=== PATIENT | female | born 1955 | race Caucasian/White ===

== ENCOUNTER 2025-03-20 14:51 | Observation (INO) | payer MEDICARE, SELFPAY ==
[2025-03-20] VITALS (10 sets, daily range): BP systolic 125–169; BP diastolic 68–105; PULSE 70–88; RESP 11–28; TEMP 36.6–36.8; O2SAT 86–98; BMI 30.9
--- NOTE | 2025-03-20 14:55 | ED_ITS ---
<Statement entered by Aden Weston MD - 03/20/25 23:38> I was consulted by the NEAL, and we discussed the complexity of the problems being addressed. I approved the treatment and management plan for this patient's care in the emergency department, thus performing a substantive portion of the medical decision making. Aden Weston MD, BJORN, FACEP Discharge Plan Disposition Patient Disposition: Admitted Condition: Good Clinical Impressions Clinical Impression: Acute diverticulitis, Elevated creatine kinase, Hypokalemia, Hypomagnesemia, Toxic metabolic encephalopathy Discharge ED Provider: Aden Weston General Adult HPI General Chief complaint: Weakness Stated complaint: Weakness Time Seen by Provider: 03/20/25 14:55 History of Present Illness HPI narrative: Patient presents for evaluation of bilateral lower extremity weakness. Patient's last known well was around 630 to 7 PM last night. Patient states that she felt unwell yesterday and noted that she had a temperature of 102. She took a home COVID test that was reportedly positive. She took ibuprofen and felt that she was somewhat better however she did attempt to contact her PCP who was out of the office yesterday. Patient has no recollection of the events after yesterday evening. Patient was found by family members around 930 this morning in the floor. Patient has no recollection of events. Currently she denies chest pain fever chills hemoptysis hematochezia melena nausea vomiting diarrhea. Patient was assisted to a chair been normal. She has no focal neurologic deficits pain or injury. However patient reports that her bilateral anterior upper thighs feel weak. She feels unsteady which is not her normal. Related Data Home Medications ?Medication ?Instructions ?Recorded ?Confirmed diphenhydramine HCl 25 mg capsule 25 mg PO HS PRN Slee p 03/20/25 03/20/25 (Benadryl) ezetimibe 10 mg tablet 10 mg PO DAILY 03/20/2502/20 hydrochlorothiazide 50 mg tablet 50 mg PO DAILY 03/20/25 levothyroxine 50 mcg tablet 50 mcg PO DAILY 03/20/25 0 03/20/25 meclizine 25 mg tablet 25 mg PO TID PRN Dizziness 0 03/20/25 03/20/25 melatonin 10 mg tablet 10 mg PO HS 03/20/25 5 metoprolol succinate 50 mg 50 mg PO DAILY 03/20/25 tablet,extended release 24 hr trazodone 50 mg tablet 50 mg PO HS 03/20/25 5 valsartan 160 mg tablet 160 mg PO DAILY 03/20/25 Allergies Allergy/AdvReac Type Severity Reaction Status Date / Time Sulfa (Sulfonamide Allergy Hives Verified 03/20/25 15:28 Antibiotics) [facility] Disclaimer: The information contained in this section may have been updated after the patient was seen, as this information can be updated by other users. Family History (Updated 03/20/25 @ 19:57 by Aurelio French APRN) Father Cancer Mother Cancer Social History Smoking Status: Never smoker alcohol intake: never current occupational status: retired Travel in the last 8 weeks?: None ROS Obtained: Yes Systems reviewed as appropriate & no additional complaints except as documented Physical Exam General General appearance: alert and in no apparent distress Respiratory Respiratory exam: Present normal lung sounds bilaterally Cardiovascular Cardiovascular exam: Present regular rate and normal rhythm Neurological Exam Neurological exam: Present alert, oriented X3, CN II-XII intact and normal gait; Absent motor sensory deficit Medical Decision Making Medical Records Medical records reviewed: Yes I reviewed the patient's medical records. Screening: Per USPSTF and CDC recommendations, given the prevalence of disease in our region, it is our hospital?s policy to screen for HIV and viral Hepatitis for all patients aged 18 and over and those with ongoing risk factors. Abraham Inquiry Pt receiving controlled substance: No Vital Signs: 03/20/25 14:58 03/20/25 15:00 03/20/25 15:30 Temperature 98.2 F Temperature Source Oral Pulse Rate 83 Pulse Rate [Left Radial] 82 Respiratory Rate 14 17 20 Blood Pressure 146/68 H 139/73 Blood Pressure [Right Arm] 144/72 H Blood Pressure Mean [Right Arm] 96 Blood Pressure Source Blood Pressure Position 02 Sat by Pulse Oximetry 94 L 97 Oxygen Delivery Method Room Air 03/20/25 16:00 03/20/25 17:30 03/20/25 18:00 Temperature Temperature Source Pulse Rate 82 88 85 Pulse Rate [Left Radial] Respiratory Rate 28 H 23 22 Blood Pressure 151/75 H 169/78 H Blood Pressure [Right Arm] Blood Pressure Mean [Right Arm] Blood Pressure Source Blood Pressure Position 02 Sat by Pulse Oximetry 98 97 96 Oxygen Delivery Method Room Air 03/20/25 18:30 03/20/25 19:38 Temperature 97.9 F Temperature Source Oral Pulse Rate 84 86 Pulse Rate [Left Radial] Respiratory Rate 18 16 Blood Pressure 151/69 H 133/74 Blood Pressure [Right Arm] Blood Pressure Mean [Right Arm] Blood Pressure Source Automatic Cuff Blood Pressure Position Supine 02 Sat by Pulse Oximetry 97 Oxygen Delivery Method Room Air Room Air Lab Data Lab results reviewed: Yes I reviewed the patient's lab results. Lab Results 03/20/25 15:10: VBG pH 7.50 H, VBG pCO2 27.0 L, VBG pO2 184.3 H, VBG HCO3 20.3 L , VBG Total CO2 21.2 L, VBG O2 Saturation 99.7 H, VBG Base Excess -2.9 L, VBG Lactic Acid 1.9 03/20/25 15:14: Chlamy pneumoniae PCR Not detected, Adenovirus (PCR) Not detected, B. pertussis DNA (PCR) Not detected, Coronavirus OC43 (PCR) Not detected, Coronavirus HKU1 (PCR) Not detected, Coronavirus 229E (PCR) Not detected, SARS-CoV-2 (PCR) Not detected, Coronavirus NL63 (PCR) Not detected, Human Metapneumovir PCR Not detected, Influenza A (H1) PCR Not detected, Influ A (H1N1/09) PCR Not detected, Influenza A (H3) PCR Not detected, Influenza Type A (PCR) Not detected, Influenza Type B (PCR) Not detected, M. pneumoniae (PCR) Not detected, Parainfluenza 1 (PCR) Not detected, Parainfluenza 2 (PCR) Not detected, Parainfluenza 3 (PCR) Not detected, Parainfluenza 4 (PCR) Not detected, RSV (PCR) Not detected, Entero/Rhino (PCR) Not detected 03/20/25 16:20: WBC 14.7 H, RBC 3.68 L, Hgb 12.1 L, Hct 35.0 L, MCV 95.1, MCH 32.9 H, MCHC 34.6, RDW 14.0, Plt Count 288, MPV 9.9, Neut % (Auto) 89.9 H, Lymph % (Auto) 4.1 L, [place] % (Auto) 5.5, Eos % (Auto) 0.0 L, Baso % (Auto) 0.1, Neut # (Auto) 13.2 H, Lymph # (Auto) 0.6 L, [place] # (Auto) 0.8, Eos # (Auto) 0.0, Baso # (Auto) 0.0, ESR 63 H, PT 11.9, INR 1.08, Sodium 134 L, Potassium 3.0 L, Chloride 99, Carbon Dioxide 27, Anion Gap 11.0, BUN 21 H, Creatinine 1.00, Estimated Creat Clear 67, Estimated GFR 55 L, Est GFR ( Amer) 66, Glucose 105 H, Calcium 9.0, Phosphorus 2.5, Magnesium 1.4 L, Total Bilirubin 0.9, AST 52 H, ALT 23, Alkaline Phosphatase 72, Total Creatine Kinase 1043 H*, Troponin I < 0.01, C -Reactive Protein 141.0 H, NT-Pro-B Natriuret Pep 507 H, Total Protein 7.5, Albumin 4.1, Globulin 3.4 H, Albumin/Globulin Ratio 1.2, Procalcitonin 0.305, TSH 2.41, Free T4 Index 4.2 L, Thyroxine (T4) 10.5, T3 Uptake 40 03/20/25 17:31: Urine Color Yellow, Urine Appearance Clear, Urine pH 6.0, Ur Specific [place] 1.010, Urine Protein Negative, Urine Glucose (UA) Negative, Urine Ketones 1+, Urine Blood Trace-i, Urine Nitrate Negative, Urine Bilirubin Negative, Urine Urobilinogen 0.2, Ur Leukocyte Esterase Negative, Urine RBC Occasional, Urine WBC None, Ur Squamous Epith Cells 3-5, Urine Bacteria Trace, Urine Opiates Screen Negative, Urine Methadone Screen Negative, Ur Barbituates Screen Negative, Ur Phencyclidine Scrn Negative, Ur Amphetamines Screen Negative, U Benzodiazepines Scrn Negative, Urine Cocaine Screen Negative, U Marijuana (THC) Screen Negative 03/20/25 16:20 03/20/25 16:20 Orders (Tests/Meds): ED MEDICATIONS Generic Name Dose Route Start Last Admin Trade Name Freq PRN Reason Stop Dose Admin Acetaminophen 650 mg 03/20/25 18:31 Acetaminophen 325mg Tab PO 04/19/25 18:30 Q4HP PRN Fever or Mild Pain (1-3) Enoxaparin Sodium 40 mg 03/21/25 09:00 Enoxaparin 40mg/0.4ml Syringe SUBCUT 04/20/25 08:59 DAILY RAFAEL Piperacillin Sod/Tazobactam 50 mls @ 100 mls/hr 03/21/25 01:30 Sod 3.375 gm/ Sodium Chloride IV 03/31/25 01:29 Q6H RAFAEL Discontinued Medications Generic Name Dose Route Start Last Admin Trade Name Freq PRN Reason Stop Dose Admin Sodium Chloride 1,000 mls @ 999 mls/hr 03/20/25 15:08 03/20/25 15:24 Sod Chlor 0.9% 1000ml Bag IV 03/20/25 16:08 999 mls/hr .Q1H1M ONE Administration Piperacillin Sod/Tazobactam 50 mls @ 100 mls/hr 03/20/25 18:22 Sod 3.375 gm/ Sodium Chloride IV 03/20/25 18:51 ONCE ONE Iopamidol 160 ml 03/20/25 17:10 03/20/25 17:12 Iopamidol-370 (76%);100ml Bottle IV 03/20/25 17:11 160 ml ONCE ONE Administration Sodium Chloride 10 ml 03/20/25 17:10 03/20/25 17:12 Sodium Chloride 0.9% 10ml Syr (Rad Only) IV 03/20/25 17:11 10 ml ONCE ONE Administration Sodium Chloride 100 ml 03/20/25 17:10 03/20/25 17:12 0.9 % Sodium Chloride 50 Ml Vial IV 03/20/25 17:11 100 ml ONCE ONE Administration ORDERS Category Date Time Status CT angio abd/pel - TRAUMA Stat Cat Scan 03/20/25 15:[address] angio chest - dissection Stat Cat Scan 03/20/25 15:[address] angio head Stat Cat Scan 03/20/25 15:[address] angio neck Stat Cat Scan 03/20/25 15:[address] cervical spine wo con Stat Cat Scan 03/20/25 15:[address] head/brain wo con Stat Cat Scan 03/20/25 15:[address] lumbar spine wo con Stat Cat Scan 03/20/25 15:[address] thoracic spine wo con Stat Cat Scan 03/20/25 15:10 Completed BNP [NT Pro Brain Natriuretic Pep.] Stat Lab 03/20/25 16:20 Completed CBC w/Auto Diff [Complete Blood Count Auto Diff] Stat Lab 03/20/25 16:20 Completed CK [Creatine Kinase] AMLAB Lab 03/21/25 06:00 Ordered CK [Creatine Kinase] Stat Lab 03/20/25 16:20 Completed CMP [Comprehensive Metabolic Panel] Stat Lab 03/20/25 16:20 Completed CRP [C-Reactive Protein] Stat Lab 03/20/25 16:20 Completed Complete Blood Count Auto Diff AMLAB Lab 03/21/25 06:00 Ordered Comprehensive Metabolic Panel AMLAB Lab 03/21/25 06:00 Ordered ESR [Erythrocyte Sedimentation Rate] Stat Lab 03/20/25 16:20 Completed Full Resp Panel w/COVID ([facility]) Routine Lab 03/20/25 15:14 Completed INR [Prothrombin Time INR] Stat Lab 03/20/25 16:20 Completed Magnesium AMLAB Lab 03/21/25 06:00 Ordered Magnesium Stat Lab 03/20/25 16:20 Completed Phosphorous AMLAB Lab 03/21/25 06:00 Ordered Phosphorous Stat Lab 03/20/25 16:20 Completed Procalcitonin Stat Lab 03/20/25 16:20 Completed Thyroid Panel Stat Lab 03/20/25 16:20 Completed Trop I [Troponin I] Stat Lab 03/20/25 16:20 Completed Troponin I Q3H Lab 03/20/25 21:15 Ordered UA [Urinalysis and Microscopic] Stat Lab 03/20/25 17:31 Completed UDS [Drug Screen,Urine] Stat Lab 03/20/25 17:31 Completed Blood Culture Stat Micro 03/20/25 18:48 Received VBG [Venous Blood Gas] Stat RT 03/20/25 15:10 Completed Medical Decision Narrative: In summary patient is a 69-year-old female who presents to the emergency department for evaluation of a fall and amnesia of the events, fever and a positive home COVID test. Patient is is initially hemodynamically stable with a blood pressure 144/72 heart rate 82 with normal sinus rhythm on the bedside monitor breathing 14 times a minute satting at 94% on room air upon arrival, afebrile at 98.2. Physical exam is remarkable for a well-nourished well- developed 69-year-old female who otherwise is in no acute distress. Breath sounds clear and equal bilaterally to the bases without adventitious sounds or increased work of breathing. Abdomen soft nontender no rebound or guarding or rigidity. Bowel sounds normal active. Heart sounds are S1-S2 regular rate rhythm without murmurs gallops rubs or thrills or dependent edema. Cranial nerves II through XII are intact grossly to exam patient is currently awake alert and oriented person place and circumstance with a [place] Coma Score 15. Patient moves all 4 extremities with no focal neurologic deficits. Secondary survey reveals no trauma bony deformity pain contusions abrasions tenderness instability or crepitus.. Differential diagnosis includes stroke versus syncope versus ACS versus PE versus UTI versus hypoxia etc. Initial workup will be conducted with hematologic labs ED trauma scans urinalysis. Initial interventions include crystalloid bolus for now as patient has no other complaints of pain or nausea. Initial workup reviewed by me shows patient white count is 14.7 hemoglobin and hematocrit of 12.1 and 35.0 respectively with an absolute neutrophil count of 13.2, ESR is 63 INR is 1.08 VBG shows a pH of 7.5 pCO2 of 27P O2 of 184.3 bicarb of 20.3 O2 sat of 99.7% base excess of -2.9 and VBG lactic acid of 1.9, sodium is at 134 potassium is 3 BUN is 21 creatinine 1 GFR is 55 glucose is 105 magnesium is 1.4 AST is 52 CK is 1043 troponin is undetectable at 0.01 CRP is elevated at 141 NT proBNP is 507 procalcitonin is 0.305 TSH is 2.41 urinalysis is bland urine drug screen is negative full respiratory panel does not detect COVID nor any other organisms. My informed interpretation of her imaging shows no evidence of acute bony injury intracranial injury or large vessel occlusion. There is questionable stranding around the descending colon that could be diverticulitis. Please see final radiology read for formal interpretation.. Upon repeat evaluation patient remains with a [place] Coma Score 15 awake alert and oriented tolerating oral intake. Given this I had interactive discussion with hospital medicine regarding patient's presentation MALONEY and management. I have repleted her potassium magnesium and started her on Zosyn. She will be admitted for further evaluation and care given her elevated CK questionable diverticulitis and possible encephalopathic event. Critical Care Critical Care Time Critical Care Time: Yes Attestation: On 03/20/25, the high probability of a clinically significant, sudden or life threatening deterioration of the following system(s) required my full and direct attention, intervention and personal management. The time I documented below is in addition to time spent performing reported procedures but includes the following listed in this critical care notation. Total Time Total Critical Care Time: 30
--- NOTE | 2025-03-20 15:10 | CT_ITS ---
PROCEDURE INFORMATION: Exam: CTA Chest With Contrast Exam date and time: 03/20/2025 5:13 PM Age: 69 years old Clinical indication: Injury or trauma; Fall; Additional info: Fell yesterday, found down TECHNIQUE: Imaging protocol: Computed tomographic angiography of the chest with contrast. Exam focused on the arteries. 3D rendering (Not supervised by radiologist): MIP and/or 3D reconstructed images were created by the technologist. Radiation optimization: All CT scans at this facility use at least one of these dose optimization techniques: automated exposure control; mA and/or kV adjustment per patient size (includes targeted exams where dose is matched to clinical indication); or iterative reconstruction. Contrast material: ISOVUE; Contrast volume: 80 ml; Contrast route: INTRAVENOUS (IV); COMPARISON: CT ANGIO NECK 03/20/2025 5:09 PM FINDINGS: Pulmonary arteries: Normal. No pulmonary emboli. Aorta: Unremarkable. No aortic aneurysm. No aortic dissection. Lungs: Unremarkable. No consolidation. No masses. Pleural spaces: Unremarkable. No pneumothorax. No pleural effusion. Heart: Unremarkable. No cardiomegaly. No pericardial effusion. Lymph nodes: Unremarkable. No enlarged lymph nodes. Bones/joints: Unremarkable. No acute fracture. Soft tissues: Unremarkable. IMPRESSION: No acute findings.
--- NOTE | 2025-03-20 15:10 | CT_ITS ---
PROCEDURE INFORMATION: Exam: CTA Abdomen and Pelvis With Contrast Exam date and time: 03/20/2025 5:13 PM Age: 69 years old Clinical indication: Injury or trauma; Fall; Additional info: Fell yesterday, found down TECHNIQUE: Imaging protocol: Computed tomographic angiography of the abdomen and pelvis with contrast. Exam focused on the arteries. 3D rendering (Not supervised by radiologist): MIP and/or 3D reconstructed images were created by the technologist. Radiation optimization: All CT scans at this facility use at least one of these dose optimization techniques: automated exposure control; mA and/or kV adjustment per patient size (includes targeted exams where dose is matched to clinical indication); or iterative reconstruction. Contrast material: ISOVUE; Contrast volume: 80 ml; Contrast route: INTRAVENOUS (IV); COMPARISON: CT LUMBAR SPINE WO CON 03/20/2025 5:07 PM FINDINGS: Lungs: Mild atelectasis in the lung bases. Heart: Heart size upper limits of normal. Esophagus: The visualized distal esophagus is largely contracted without gross abnormality. Aorta: Abdominal aorta demonstrates minor calcific plaque without aneurysm, dissection, or stenosis. Celiac trunk and mesenteric arteries: Celiac artery and its major branch vessels are unremarkable. SMA and its major branch vessels are unremarkable. Renal arteries: Right renal artery is unremarkable. Left renal artery is unremarkable. Right iliac arteries: Right iliac arteries demonstrate minor calcific plaque but are otherwise unremarkable. Left iliac arteries: Left iliac arteries demonstrate minor calcific plaque but are otherwise unremarkable. Liver: Normal contour. No mass lesions. No intrahepatic biliary ductal dilatation. Gallbladder and biliary ducts: Normal. No calcified stones. No ductal dilation. Pancreas: Mild pancreatic atrophy without acute abnormality. No pancreatic ductal dilatation. Spleen: Granulomatous calcifications in the spleen without acute splenic abnormality. Adrenal glands: Normal. No adrenal mass. Kidneys and ureters: No acute abnormalities. No hydronephrosis or hydroureter. Mixed phase contrast injection with excreted contrast in the renal collecting systems limiting sensitivity for stones. Small renal cortical cysts which do not require further evaluation. Stomach and bowel: The stomach is partially contracted without gross abnormality. The small bowel is nondilated with no gross abnormality. Thickened diverticulum at the posterior margin of the descending colon with adjacent stranding consistent with acute diverticulitis. No perforation or abscess. Moderate distal colonic diverticulosis. Appendix: The appendix is normal in caliber and demonstrates no evidence of appendicitis. Intraperitoneal space: No peritoneal free fluid or air. Lymph nodes: No adenopathy. Urinary bladder: Unremarkable as visualized. Reproductive: Unremarkable as visualized. Bones/joints: No acute osseous abnormalities. 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 Soft tissues: No acute soft tissue abnormalities. IMPRESSION: 1. No acute vascular abnormalities. No acute abdominal/pelvic injuries. 2. There is acute diverticulitis in the mid descending colon. No perforation or abscess. 3. Moderate distal colonic diverticulosis. 4. Additional nonemergent findings detailed above.
--- NOTE | 2025-03-20 15:10 | CT_ITS ---
PROCEDURE INFORMATION: Exam: CT Thoracic Spine Without Contrast Exam date and time: 03/20/2025 5:04 PM Age: 69 years old Clinical indication: Injury or trauma; Fall; Additional info: Fell yesterday, found down TECHNIQUE: Imaging protocol: Computed tomography of the thoracic spine without contrast. Radiation optimization: All CT scans at this facility use at least one of these dose optimization techniques: automated exposure control; mA and/or kV adjustment per patient size (includes targeted exams where dose is matched to clinical indication); or iterative reconstruction. COMPARISON: CT CERVICAL SPINE WO CON 20/03/2025 17:02 FINDINGS: Bones/joints: No acute fracture or subluxation. Osteopenia. Degenerative changes of the spine. 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 Mild chronic appearing compression of the T6 central superior endplate. Soft tissues: Unremarkable. Vasculature: Atherosclerosis. Other findings: Calcified left hilar granuloma. IMPRESSION: 1. No acute fracture or subluxation. 2. Additional chronic/nonemergent findings as detailed above.
--- NOTE | 2025-03-20 15:10 | CT_ITS ---
PROCEDURE INFORMATION: Exam: CTA Head With Contrast, Arteriography Exam date and time: 03/20/2025 5:09 PM Age: 69 years old Clinical indication: Injury or trauma; Additional info: Fell yesterday, found down TECHNIQUE: Imaging protocol: Computed tomographic angiography of the head with contrast. Exam focused on the arteries. 3D rendering (Not supervised by radiologist): MIP and/or 3D reconstructed images were created by the technologist. Radiation optimization: All CT scans at this facility use at least one of these dose optimization techniques: automated exposure control; mA and/or kV adjustment per patient size (includes targeted exams where dose is matched to clinical indication); or iterative reconstruction. Contrast material: ISOVUE; Contrast volume: 80 ml; Contrast route: INTRAVENOUS (IV); COMPARISON: CT HEAD/BRAIN WO CON 03/20/2025 5:01 PM FINDINGS: ANTERIOR CIRCULATION: Right internal carotid artery: Intracranial segment is patent with no significant stenosis. No aneurysm. Right middle cerebral artery: No occlusion or significant stenosis. No aneurysm. Right anterior cerebral artery: No occlusion or significant stenosis. No aneurysm. Left internal carotid artery: Intracranial segment is patent with no significant stenosis. No aneurysm. Left middle cerebral artery: No occlusion or significant stenosis. No aneurysm. Left anterior cerebral artery: No occlusion or significant stenosis. No aneurysm. POSTERIOR CIRCULATION: Right vertebral artery: No occlusion or significant stenosis. No aneurysm. Left vertebral artery: No occlusion or significant stenosis. No aneurysm. Basilar artery: No occlusion or significant stenosis. No aneurysm. Right posterior cerebral artery: No occlusion or significant stenosis. No aneurysm. Left posterior cerebral artery: No occlusion or significant stenosis. No aneurysm. Brain: No definite mass, mass effect, or midline shift. Cerebral ventricles: No ventriculomegaly. Bones/joints: No acute fracture or focal bone lesions. Soft tissues: No masses or swelling. IMPRESSION: No large vessel occlusion. No acute intracranial abnormalities.
--- NOTE | 2025-03-20 15:10 | CT_ITS ---
PROCEDURE INFORMATION: Exam: CT Cervical Spine Without Contrast Exam date and time: 03/20/2025 5:02 PM Age: 69 years old Clinical indication: Injury or trauma; Additional info: Fell yesterday, found down TECHNIQUE: Imaging protocol: Computed tomography of the cervical spine without contrast. Radiation optimization: All CT scans at this facility use at least one of these dose optimization techniques: automated exposure control; mA and/or kV adjustment per patient size (includes targeted exams where dose is matched to clinical indication); or iterative reconstruction. COMPARISON: CT CERVICAL SPINE WO CON 03/20/2025 5:02 PM FINDINGS: Bones: No acute fracture. Normal alignment. Fused C2 and C3 levels. Moderate disc space narrowing at C3-C4, C4-C5 and C5-C6. Multilevel endplate osteophytes. No significant disc bulge or herniation. No severe spinal canal stenosis. Moderate left-sided bony foraminal stenosis at C3-C4. Mild right-sided bony foraminal stenosis at C4-C5, C5-C6 and C6-C7. Lungs: No acute findings at the lung apices. Soft tissues: Unremarkable. IMPRESSION: No acute findings.
--- NOTE | 2025-03-20 15:10 | CT_ITS ---
PROCEDURE INFORMATION: Exam: CT Lumbar Spine Without Contrast Exam date and time: 03/20/2025 5:07 PM Age: 69 years old Clinical indication: Injury or trauma; Fall; Additional info: Fell yesterday, found down TECHNIQUE: Imaging protocol: Computed tomography of the lumbar spine without contrast. Radiation optimization: All CT scans at this facility use at least one of these dose optimization techniques: automated exposure control; mA and/or kV adjustment per patient size (includes targeted exams where dose is matched to clinical indication); or iterative reconstruction. COMPARISON: CT THORACIC SPINE WO CON 20/03/2025 17:04 FINDINGS: Bones/joints: No acute fracture or dislocation. Osteopenia. Multilevel degenerative change of the spine. Dextrocurvature of the upper lumbar spine and levocurvature of the lower lumbar spine. Partial calcification of the L5/S1 disc. Stomach and bowel: Colonic diverticulosis. No bowel dilation. No bowel wall thickening. Vasculature: Atherosclerosis. Soft tissues: Unremarkable. IMPRESSION: 1. No acute fracture or dislocation. 2. Additional chronic/nonemergent findings as detailed above.
--- NOTE | 2025-03-20 15:10 | CT_ITS ---
PROCEDURE INFORMATION: Exam: CTA Neck With Contrast Exam date and time: 03/20/2025 5:09 PM Age: 69 years old Clinical indication: Injury or trauma; Additional info: Fell yesterday, found down TECHNIQUE: Imaging protocol: Computed tomographic angiography of the neck with contrast. Exam focused on the cervical segments of the vasculature. 3D rendering (Not supervised by radiologist): MIP and/or 3D reconstructed images were created by the technologist. Radiation optimization: All CT scans at this facility use at least one of these dose optimization techniques: automated exposure control; mA and/or kV adjustment per patient size (includes targeted exams where dose is matched to clinical indication); or iterative reconstruction. Contrast material: ISOVUE; Contrast volume: 80 ml; Contrast route: INTRAVENOUS (IV); COMPARISON: CT CERVICAL SPINE WO CON 03/20/2025 5:02 PM FINDINGS: Right common carotid artery: No stenosis. No dissection or occlusion. Right internal carotid artery: No stenosis of the extracranial segment. No dissection or occlusion. Right external carotid artery: No occlusion or stenosis of the origin. Left common carotid artery: No stenosis. No dissection or occlusion. Left internal carotid artery: No stenosis of the extracranial segment. No dissection or occlusion. Left external carotid artery: No occlusion or stenosis of the origin. Right vertebral artery: No stenosis. No dissection or occlusion. Left vertebral artery: No stenosis. No dissection or occlusion. Origin from the aortic arch. Soft tissues: No masses or edema. Bones/joints: No acute fracture, subluxations, or bone lesions. IMPRESSION: No arterial stenosis or occlusion in the neck. REFERENCES: NASCET CRITERIA. The degree of stenosis in the cervical segment of the internal carotid artery is based on NASCET criteria. Normal is no stenosis. Mild is less than 50% stenosis. Moderate is 50-69% stenosis. Severe is 70% to 99% stenosis. Total occlusion is no detectable patent lumen.
--- NOTE | 2025-03-20 15:10 | CT_ITS ---
PROCEDURE INFORMATION: Exam: CT Head Without Contrast Exam date and time: 03/20/2025 5:01 PM Age: 69 years old Clinical indication: Injury or trauma; Fall; Additional info: Fell yesterday, found down TECHNIQUE: Imaging protocol: Computed tomography of the head without contrast. Radiation optimization: All CT scans at this facility use at least one of these dose optimization techniques: automated exposure control; mA and/or kV adjustment per patient size (includes targeted exams where dose is matched to clinical indication); or iterative reconstruction. COMPARISON: No relevant prior studies available. FINDINGS: Brain: Normal. No hemorrhage. Unremarkable white matter. No mass effect. Cerebral ventricles: No ventriculomegaly. Paranasal sinuses: Visualized sinuses are unremarkable. No fluid levels. Mastoid air cells: Visualized mastoid air cells are well aerated. Bones: Unremarkable. No acute fracture. Soft tissues: Unremarkable. IMPRESSION: No acute intracranial abnormality.
[2025-03-20 15:16] LABS: Bordetella Pertussis Not Detected (NotDetected); Chlamydophila Pneumoniae, PCR Not Detected (NotDetected); Coronavirus 19, PCR Not Detected (NotDetected); Mycoplasma Pneumoniae, PCR Not Detected (NotDetected); Parainfluenza 4, PCR Not Detected (NotDetected); Respiratory Syncytial Virus Not Detected (NotDetected)
[2025-03-20 15:18] LABS: Adenovirus,PCR Not Detected (NotDetected); Coronavirus 229E Not Detected (NotDetected); Coronavirus NL63 Not Detected (NotDetected); Coronavirus OC43 Not Detected (NotDetected); Coronovirus HKU1,PCR Not Detected (NotDetected); Human Metapneumovirus Not Detected (NotDetected); Influenza A, PCR Not Detected (NotDetected); Influenza AH1, 2009 Not Detected (NotDetected); Influenza AH1, PCR Not Detected (NotDetected); Influenza AH3,PCR Not Detected (NotDetected); Influenza B, PCR Not Detected (NotDetected); Parainfluenza 1, PCR Not Detected (NotDetected); Parainfluenza 2, PCR Not Detected (NotDetected); Parainfluenza 3, PCR Not Detected (NotDetected); Rhinovirus/Enterovirus Not Detected (NotDetected)
[2025-03-20] MEDS: 0.9 % SODIUM CHLORIDE 1000ML 1,000 ML 999 ML IV (15:24)
--- NOTE | 2025-03-20 15:48 | PC.NURSE ---
purewick placed at this time
[2025-03-20 16:31] LABS: Basophils % 0.1 % (0.1-2.0); Hemoglobin 12.1 g/dL (12.2-16.2); Immature Granulocytes # 0.06 10^3uL; Immature Granulocytes % 0.4 %; Lymphocytes # 0.6 K/mm3 (0.7-4.5); Lymphocytes % 4.1 % (10-50); Mean Corpuscular HGB Conc 34.6 g/dL (31.8-35.4); Mean Corpuscular Hemoglobin 32.9 pg (27.0-31.2); Mean Corpuscular Volume 95.1 fl (81-99); Mean Platelet Volume 9.9 fl (7.4-10.4); Monocytes # 0.8 K/mm3 (0.1-1.0); Monocytes % 5.5 % (1.7-9.3); Neutrophils # 13.2 K/mm3 (1.8-7.8); Neutrophils % 89.9 % (37.0-80.0); Nucleated Red Blood Cells # 0 10^3/uL; Nucleated Red Blood Cells % 0 %; Platelet Count 288 K/mm3 (142-424); Red Blood Count 3.68 M/mm3 (4.20-5.40); Red Cell Distribution Width-SD 49.1 fL; White Blood Count 14.7 K/mm3 (4.8-10.8)
[2025-03-20 16:37] LABS: Albumin Level 4.1 g/dl (3.5-5.0); Chloride 99 mmol/L (98-107); Sodium 134 mmol/L (136-145)
[2025-03-20 16:39] LABS: Alanine Aminotransferase 23 U/L (12-78); Aspartate Amino Transferase 52 U/L (14-36); Blood Urea Nitrogen 21 mg/dl (7-17); Creatinine Clearance Estimated 67 mL/min (50-200); Estimated Glomerular Filt Rate 55 ml/min (>60); GFR (African American) 66 ML/MIN (>60)
[2025-03-20 16:40] LABS: Albumin/Globulin Ratio 1.2 (1.1-1.8); Alkaline Phosphatase 72 U/L (38-126); Bilirubin,Total 0.9 mg/dl (0.2-1.3); Carbon Dioxide 27 mmol/L (22.0-30.0); Creatine Kinase 1043 U/L (30-135); Globulin 3.4 g/dL (1.3-3.2); Glucose 105 mg/dl (74-100); Total Protein,Serum 7.5 g/dl (6.3-8.2)
[2025-03-20 16:41] LABS: INR 1.08 (0.9-1.1); Magnesium 1.4 mg/dl (1.6-2.3); Phosphorous 2.5 mg/dl (2.5-4.5); Prothrombin Time 11.9 seconds (10.1-12.5)
[2025-03-20 16:52] LABS: NT Pro Brain Natriuretic Pep. 507 pg/mL (0-125)
[2025-03-20 16:55] LABS: Troponin I < 0.01 ng/ml (0.00-0.034)
[2025-03-20 16:56] LABS: Erythrocyte Sedimentation Rate 63 mm/hr (0-30)
[2025-03-20 17:06] LABS: Free Thyroxine Index 4.2 ug/dL (5.93-13.13); T4 (Thyroxine) 10.5 ug/dl (5.53-11.0); Triiodothryronine (T3) Uptake 40 % (23.5-40.5)
[2025-03-20 17:11] LABS: Procalcitonin 0.305 ng/mL (0.0-2.0)
[2025-03-20] MEDS: 0.9 % SODIUM CHLORIDE 50 ML VIAL 100 ML IV (17:12)
[2025-03-20] MEDS: SODIUM CHLORIDE 0.9% 10ML SYR (RAD ONLY) 10 ML IV (17:12)
[2025-03-20] MEDS: IOPAMIDOL-370 (76%);100ML BOTTLE 160 ML IV (17:12)
[2025-03-20 17:19] LABS: Thyroid Stimulating Hormone 2.41 uIU/mL (0.465-4.68)
[2025-03-20 17:35] LABS: Microscopic, Urine URINE MICROSCOPIC (MICROSCOPIC)
[2025-03-20 17:39] LABS: Appearance,Urine CLEAR (Clear); Bilirubin,Urine Negative (Negative); Blood, Urine TRACE-I (Negative); Color,Urine YELLOW (Yellow); Glucose,Urine (UA) Negative (Negative); Ketones,Urine 1+ (Negative); Leukocyte Esterase,Urine Negative (Negative); Nitrate,Urine Negative (Negative); Protein,Urine Negative (Negative); Urobilinogen,Urine 0.2 EU/dl (0.2)
[2025-03-20 17:46] LABS: Bacteria,Urine Trace /lpf; RBC,Urine Occasional #/hpf (0-3)
[2025-03-20 17:52] LABS: Barbiturates Screen,Urine Negative ng/ml (<200); Benzodiazepines Screen,Urine Negative ng/ml (<200)
[2025-03-20 17:53] LABS: Amphetamine/Metha Screen,Urine Negative ng/ml (<1000); Cannabinoid Screen,Urine Negative ng/ml (<50)
[2025-03-20 17:54] LABS: Cocaine Screen,Urine Negative ng/ml (<300)
[2025-03-20 17:55] LABS: Methadone Screen,Urine Negative ng/ml (<300); Opiate Screen,Urine Negative ng/ml (<300)
[2025-03-20 17:56] LABS: Phencyclidine Screen,Urine Negative ng/ml (<25)
[2025-03-20 18:07] LABS: Lactate Venous 1.9 mmol/L (0.4-2.0); VBG Base Excess -2.9 mmol/L (-2.4-2.3); VBG HCO3 20.3 mmol/L (23-30); VBG Oxygen Saturation 99.7 % (50-70); VBG PO2 184.3 mmol/L (28-40); VBG Total CO2 21.2 mmol/L (23-27)
--- NOTE | 2025-03-20 19:38 | PC.NURSE ---
Report given to Brayden Haynes on M/S unit. Awaiting transport upstairs.
--- NOTE | 2025-03-20 19:49 | P.HP_ITS ---
<Statement entered by Jann Hull MD - 03/21/25 17:58> Rounded on patient after nurse practitioner. Personally examined and interviewed patient. Agree with exam findings and care plan as documented. History of Present Illness *Admission Date: 03/20/25 *Reason for visit:: Syncope of unknown cause *History of present illness: This patient who yesterday began to have some chills, did a home COVID test that was positive. (Note further workup in the ER showed no active virus or COVID PCR was negative). Patient notes she gets COVID shots and flu shots. According to relatives patient was talking but the patient has no regular extension of anything and actually at some time ended up on the floor were not sure for how many hours. Due to this slightly elevated CPKs and came to the emergency room where workup was done only significant finding was diverticulosis and 1 area of diverticulitis without rupture.. But noting exam of the abdomen extremely benign unsure if CT findings are correct. Patient also noted with creatinine at at 1043 and increased WBCs blood pressure slightly elevated where she notes normally at home its between 110 and 120 systolic she also noted that she gets colonoscopies on a regular basis due to family history of colon cancer last one was 2 years ago she sees a Dr. Topete in [facility] and that her last labs were relatively normal except for mild variation in some kidney function. She takes very few medications the 1 she does take a something to help her sleep each night. Presently patient is stable workup and exam has not come up for definitive diagnosis of why the patient had the syncopal spell that apparently left her with no memory for an undetermined amount of time. Plan to continue antibiotics at this point in time for possible diverticulitis and to have physical therapy see in the morning to see if for self-care functioning has returned to her baseline [facility] Disclaimer: The information contained in this section may have been updated after the patient was seen, as this information can be updated by other users. Family History (Updated 03/20/25 @ 19:57 by Aurelio French APRN) Father Cancer Mother Cancer Social History (Updated 03/20/25 @ 20:32 by ROHINI Osuna) Smoking Status: Never smoker alcohol intake: never current occupational status: retired Travel in the last 8 weeks?: None Have you lived/traveled outside US in past 30 days?: No Contact w/someone who lives/traveled outside US past 30 days?: No Exposure to someone with infectious disease in past 14 days?: Yes Do you have a fever (greater than 100.4 F or 38 C)?: Yes Have you tested positive for COVID-19?: Yes Exposed to someone with COVID-19 in past 14 days?: Yes Do you have a sore throat?: Yes Do you have a cough?: Yes Do you have any weakness?: Yes Are you experiencing any nausea/vomitting?: No Do you have any diarrhea?: Yes Are you experiencing any unusual bleeding?: No Do you have any muscle aches/pain?: Yes Do you have any abdominal pain?: Yes Are you experiencing loss of taste or smell?: Yes Other Medical History Have you received the Flu Vaccine for this season: Yes Have you received the Pneumonia Vaccine: Yes Review of Systems Review of Systems Review of systems:: pertinent systems reviewed and negative unless documented below Constitutional Constitutional: Reports as per HPI Comments: Weight stable for the last 6 months, had episodes of chills before this event. Not exposed to a lot of people did go out to a restaurant to eat ENT Ears, Nose, Mouth, and Throat: Reports as per HPI *Cardiovascular Cardiovascular: Reports as per HPI Comments: Patient noted long history of having a light cardiac murmur *Gastrointestinal Gastrointestinal: Reports as per HPI Comments: Patient noted that her weight is stable and that bowel movements are normal she has no problems controlling her urine *Genitourinary Genitourinary: Reports as per HPI *Musculoskeletal Musculoskeletal: Reports as per HPI Comments: Patient stated she is normally completely independent and lives alone *Neurologic Neurologic: Reports as per HPI Psychiatric Psychiatric: Reports as per HPI Endocrine Endocrine: Reports as per HPI Hematologic/Lymphatic Hematologic/Lymphatic: Reports as per HPI Allergic/Immunologic Allergic/Immunologic: Reports as per HPI Meds Home Medications and Allergies Home Medications ?Medication ?Instructions ?Recorded ?Confirmed ?Type ezetimibe 10 mg tablet 10 mg PO DAILY 03/20/2502/20 History levothyroxine 50 mcg tablet 50 mcg PO DAILY 03/20/25 0 03/20/25 History meclizine 25 mg tablet 25 mg PO TIDP PRN Dizziness 03/20/25 03/21/25 History melatonin 10 mg tablet 10 mg PO HS 05/31/25 05/31/2 5 History metoprolol succinate 50 mg 50 mg PO DAILY 03/20/25 History tablet,extended release 24 hr Held on 03/21/25. Instructions: Hold pending improvement in blood pressure. Resume second if systolic blood pressure greater than 140 trazodone 50 mg tablet 50 mg PO HS 03/20/25 5 History valsartan 160 mg tablet 160 mg PO DAILY 03/20/25 History Held on 03/21/25. Instructions: Hold pending improvement in blood pressure, resume first if blood pressure greater than 140 New Prescriptions to Start Prescriptions: Allergies Allergy/AdvReac Type Severity Reaction Status Date / Time Sulfa (Sulfonamide Allergy Hives Verified 03/20/25 15:28 Antibiotics) Exam Data for Last 24 hours Vital signs and Labs for Last 24 Hours: Temp Pulse Resp BP Pulse Ox O2 Del Method 97.9 F 86 16 133/74 97 Room Air 03/20/25 19:38 03/20/25 19:38 03/20/25 19:38 03/20/25 19:38 03/20/25 18:30 03/20/25 19:38 Laboratory Results - last 24 hr 03/20/25 15:10: VBG pH 7.50 H, VBG pCO2 27.0 L, VBG pO2 184.3 H, VBG HCO3 20.3 L , VBG Total CO2 21.2 L, VBG O2 Saturation 99.7 H, VBG Base Excess -2.9 L, VBG Lactic Acid 1.9 03/20/25 15:14: Chlamy pneumoniae PCR Not detected, Adenovirus (PCR) Not detected, B. pertussis DNA (PCR) Not detected, Coronavirus OC43 (PCR) Not detected, Coronavirus HKU1 (PCR) Not detected, Coronavirus 229E (PCR) Not detected, SARS-CoV-2 (PCR) Not detected, Coronavirus NL63 (PCR) Not detected, Human Metapneumovir PCR Not detected, Influenza A (H1) PCR Not detected, Influ A (H1N1/09) PCR Not detected, Influenza A (H3) PCR Not detected, Influenza Type A (PCR) Not detected, Influenza Type B (PCR) Not detected, M. pneumoniae (PCR) Not detected, Parainfluenza 1 (PCR) Not detected, Parainfluenza 2 (PCR) Not detected, Parainfluenza 3 (PCR) Not detected, Parainfluenza 4 (PCR) Not detected, RSV (PCR) Not detected, Entero/Rhino (PCR) Not detected 03/20/25 16:20: WBC 14.7 H, RBC 3.68 L, Hgb 12.1 L, Hct 35.0 L, MCV 95.1, MCH 32.9 H, MCHC 34.6, RDW 14.0, Plt Count 288, MPV 9.9, Neut % (Auto) 89.9 H, Lymph % (Auto) 4.1 L, Kingfisher % (Auto) 5.5, Eos % (Auto) 0.0 L, Baso % (Auto) 0.1, Neut # (Auto) 13.2 H, Lymph # (Auto) 0.6 L, Kingfisher # (Auto) 0.8, Eos # (Auto) 0.0, Baso # (Auto) 0.0, ESR 63 H, PT 11.9, INR 1.08, Sodium 134 L, Potassium 3.0 L, Chloride 99, Carbon Dioxide 27, Anion Gap 11.0, BUN 21 H, Creatinine 1.00, Estimated Creat Clear 67, Estimated GFR 55 L, Est GFR ( Amer) 66, Glucose 105 H, Calcium 9.0, Phosphorus 2.5, Magnesium 1.4 L, Total Bilirubin 0.9, AST 52 H, ALT 23, Alkaline Phosphatase 72, Total Creatine Kinase 1043 H*, Troponin I < 0.01, C-Reactive Protein 141.0 H, NT-Pro-B Natriuret Pep 507 H, Total Protein 7.5, Albumin 4.1, Globulin 3.4 H, Albumin/Globulin Ratio 1.2, Procalcitonin 0.305, TSH 2.41, Free T4 Index 4.2 L, Thyroxine (T4) 10.5, T3 Uptake 40 03/20/25 17:31: Urine Color Yellow, Urine Appearance Clear, Urine pH 6.0, Ur Specific [place] 1.010, Urine Protein Negative, Urine Glucose (UA) Negative, Urine Ketones 1+, Urine Blood Trace-i, Urine Nitrate Negative, Urine Bilirubin Negative, Urine Urobilinogen 0.2, Ur Leukocyte Esterase Negative, Urine RBC Occasional, Urine WBC None, Ur Squamous Epith Cells 3-5, Urine Bacteria Trace, Urine Opiates Screen Negative, Urine Methadone Screen Negative, Ur Barbituates Screen Negative, Ur Phencyclidine Scrn Negative, Ur Amphetamines Screen Negative, U Benzodiazepines Scrn Negative, Urine Cocaine Screen Negative, U Marijuana (THC) Screen Negative I & O for Last 24 hours: Intake & Output 03/18/25 03/19/25 03/20/25 03/21/25 05:59 05:59 05:59 05:59 Weight 180 lb Radiology Reports for the Last 24 Hours: Several CT scans were done that found no acute findings. It was noted diverticulosis and diverticulitis on the abdominal CT this was without any signs of perforation. No clear cause of syncopal episode found Constitutional Constitutional: no acute distress, average body habitus and cooperative *Routine HEENT Exam Head: Present normocephalic and atraumatic Eye: Present EOMI, PERRL and normal accommodation ENT: Present mucous membranes moist and nares patent *Routine Neck Exam Neck: Present supple and full ROM Comments: No carotid bruits no thyroid megaly no cervical tenderness Routine Chest/Breast/Axilla Exam Comments: No chest wall tenderness found *Routine Respiratory Exam Respiratory: Present CTA bilaterally, normal respiratory effort, able to speak in complete sentences and symmetric chest movement Comments: Respiratory exam totally normal on room air *Routine Cardiovascular Exam Cardiovascular: Present RRR, Normal S1, Normal S2 and murmur Comments: Light holistic S1 murmur per history has been there for a long time *Routine Abdominal Exam Abdominal: Present soft and normoactive bowel sounds Comments: Abdominal exam perfectly normal found no signs of pain tenderness or anything that would indicate diverticulitis *Routine Rectal Exam Rectal:: deferred Comments:: Noted that patient has had bowel movements since arriving in the emergency room said it was formed and brown *Routine Genitalia Exam Genitalia:: deferred *Routine Extremities Exam Extremities: Present full ROM, pulses intact and normal capillary refill Routine Back/Spine/Pelvis Exam Back/Spine: Present full ROM Comments: No signs of back injury did not stand the patient but she is able to sit up and move and twist without any difficulty on the stretcher and she has been up and walked to the bathroom before I arrived *Routine Skin Exam Skin: Present intact Comments: No skin breakdown noted no abnormal bruising noted there is no edema actually turgor may be a slight poor in the lower extremities but really no signs of dehydration *Routine Neurological Exam Neurological: Present alert, oriented X3, CN II-XII intact, normal reflexes, vision grossly intact, hearing grossly intact and normal speech Comments: 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 She is totally alert oriented showing no neurological deficits memory is very good responds well answers questions well makes very good eye contact Routine Psychiatric Exam Psychiatric: Present normal affect, normal thought process, cooperative, good insight and good judgment Comments: Patient unaware of what caused this event and has no memory of the actual event H&P: Result Impressions 1. Viral illness possibly causing syncope. No abdominal pain despite CT scan showing diverticulitis, Imaging and Cardiology CT scan - abdomen: Status: image reviewed by me Additional comments: CT scan really unremarkable showing diverticulosis question area of diverticulitis without any type of rupture Assessment and Plan *Assessment and plan (1) Rhabdomyolysis: Status: Acute Category: Medical Code(s): M62.82 - Rhabdomyolysis (2) Episode of syncope: Status: Acute Qualifiers: Syncope type: unspecified Qualified Code(s): R55 - Syncope and collapse Category: Medical Code(s): R55 - Syncope and collapse (3) Toxic metabolic encephalopathy: Status: Acute Category: Medical Code(s): G92.8 - Other toxic encephalopathy (4) Hypomagnesemia: Status: Acute Category: Medical Code(s): E83.42 - Hypomagnesemia (5) Hypokalemia: Status: Acute Category: Medical Code(s): E87.6 - Hypokalemia (6) Elevated creatine kinase: Status: Acute Category: Medical Code(s): R74.8 - Abnormal levels of other serum enzymes (7) Acute diverticulitis: Status: Acute Category: Medical Code(s): K57.92 - Diverticulitis of intestine, part unspecified, without perforation or abscess without bleeding Plan Patient found down at home. Has no recollection of the event. Elevated CK on arrival. Medicine consulted for admission, discussed case with ER physician, request admission for further management of syncopal event, evaluation of altered mental status, treatment of rhabdomyolysis. Medicine agreed to admit for further care. Problems addressed as follows: 1. Patient will be admitted overnight due to the electrolyte imbalances. Said we can correct this. Check for orthostatics keep her on nuclear monitoring technician looking for abnormal rhythm. Have physical therapy evaluate in the morning to determine status at that time that if the patient is able to do complete self-care. Will monitor overnight but will place on the floor Holding home blood pressure medication. CBC, CMP, magnesium ordered for the morning White count elevated 14.7, no clear source of infection. Potentially secondary to fall. Treated with empiric antibiotics in the ER. Monitoring cultures CK elevated at 1000 on arrival. Kidney function appears normal however with BUN 21, creatinine 1.0. Magnesium low at 1.4. Replacing per protocol
[2025-03-20] MEDS: PIPERCILLIN/TAZO 3.375 GM in 0.9 % SODIUM CHLORIDE 50 ML IV (20:53)
[2025-03-20] MEDS: TRAZODONE 50MG TABLET 50 MG PO (20:57)
[2025-03-20 22:02] LABS: Troponin I < 0.01 ng/ml (0.00-0.034)
[2025-03-21] VITALS: BP 136/98; PULSE 70; PULSE 84; TEMP 36.4; O2SAT 97
[2025-03-21] MEDS: PIPERCILLIN/TAZO 3.375 GM in 0.9 % SODIUM CHLORIDE 50 ML IV ×3 (00:48→13:11)
[2025-03-21] MEDS: POTASSIUM CHLORIDE 20MEQ TAB 40 MEQ PO ×3 (01:45→09:17)
[2025-03-21] MEDS: MAGNESIUM SULFATE IN WATER 2 GM/50 ML PIGGYBACK IV ×3 (01:46→03:43)
--- NOTE | 2025-03-21 03:40 | PC.NURSE ---
PT AOx4. Currently receiving electrolyte replacement. Denies pain, n/v/d, or constipation. Respirations even and unlabored. She is currently resting in low, locked bed with call light in reach.
[2025-03-21 04:00] VITALS: BP 94/55; PULSE 60; PULSE 70; RESP 16; TEMP 36.8; O2SAT 96; BMI 30.6
[2025-03-21 07:09] LABS: Basophils % 0.2 % (0.1-2.0); Eosinophils % 0.1 % (0.1-12.0); Hematocrit 32.8 % (37.0-47.0); Hemoglobin 11.3 g/dL (12.2-16.2); Immature Granulocytes # 0.03 10^3uL; Immature Granulocytes % 0.3 %; Lymphocytes # 1.1 K/mm3 (0.7-4.5); Lymphocytes % 11.7 % (10-50); Mean Corpuscular HGB Conc 34.5 g/dL (31.8-35.4); Mean Corpuscular Hemoglobin 32.8 pg (27.0-31.2); Mean Corpuscular Volume 95.3 fl (81-99); Mean Platelet Volume 10.1 fl (7.4-10.4); Monocytes # 0.8 K/mm3 (0.1-1.0); Monocytes % 8.6 % (1.7-9.3); Neutrophils # 7.2 K/mm3 (1.8-7.8); Neutrophils % 79.1 % (37.0-80.0); Nucleated Red Blood Cells # 0 10^3/uL; Nucleated Red Blood Cells % 0 %; Platelet Count 250 K/mm3 (142-424); Red Blood Count 3.44 M/mm3 (4.20-5.40); Red Cell Distribution Width 14.3 % (11.5-17.5); Red Cell Distribution Width-SD 49.9 fL; White Blood Count 9.1 K/mm3 (4.8-10.8)
[2025-03-21 07:13] LABS: Albumin Level 3.4 g/dl (3.5-5.0); Chloride 100 mmol/L (98-107)
[2025-03-21 07:14] LABS: Potassium 3.3 mmoL/L (3.5-5.1); Sodium 133 mmol/L (136-145)
[2025-03-21 07:16] LABS: Alanine Aminotransferase 21 U/L (12-78); Albumin/Globulin Ratio 1.1 (1.1-1.8); Alkaline Phosphatase 70 U/L (38-126); Anion Gap 9.3 mEq/L (5-15); Aspartate Amino Transferase 47 U/L (14-36); Bilirubin,Total 0.5 mg/dl (0.2-1.3); Blood Urea Nitrogen 18 mg/dl (7-17); Carbon Dioxide 27 mmol/L (22.0-30.0); Creatinine Clearance Estimated 52 mL/min (50-200); Estimated Glomerular Filt Rate 40 ml/min (>60); GFR (African American) 49 ML/MIN (>60); Globulin 3.1 g/dL (1.3-3.2); Phosphorous 3.6 mg/dl (2.5-4.5); Total Protein,Serum 6.5 g/dl (6.3-8.2)
[2025-03-21 07:17] LABS: Creatine Kinase 651 U/L (30-135); Glucose 106 mg/dl (74-100); Magnesium 4.1 mg/dl (1.6-2.3)
[2025-03-21 07:35] LABS: Lactate Venous 1.2 mmol/L (0.4-2.0); VBG Base Excess -2.4 mmol/L (-2.4-2.3); VBG Oxygen Saturation 88.2 % (50-70); VBG PCO2 34.1 mmol/L (35-51); VBG PH 7.43 mmol/L (7.31-7.41); VBG PO2 53.6 mmol/L (28-40)
[2025-03-21 08:00] VITALS: BP 104/50; PULSE 60; PULSE 62; RESP 18; TEMP 37.3; O2SAT 96
[2025-03-21 08:30] VITALS: BP 104/50; BP 91/63; BP 95/61; PULSE 62; PULSE 65; PULSE 70
[2025-03-21] MEDS: ENOXAPARIN 40MG/0.4ML SYRINGE 40 MG SUBCUT (09:18)
--- NOTE | 2025-03-21 11:29 | HMH.PTEV ---
Physical Therapy Evaluation Rehab PT IP Evaluation Start: 03/20/25 18:47 Freq: ONCE Status: Active Protocol: Document 03/21/25 11:26 TANYA (Rec: 03/21/25 11:29 TANYA [id number]) Subjective/History History History This patient who yesterday began to have some chills, did a home COVID test that was positive. (Note further workup in the ER showed no active virus or COVID PCR was negative). Patient notes she gets COVID shots and flu shots. According to relatives patient was talking but the patient has no regular extension of anything and actually at some time ended up on the floor were not sure for how many hours. Due to this slightly elevated CPKs and came to the emergency room where workup was done only significant finding was diverticulosis and 1 area of diverticulitis without rupture.. But noting exam of the abdomen extremely benign unsure if CT findings are correct. Patient also noted with creatinine at at 1043 and increased WBCs blood pressure slightly elevated where she notes normally at home its between 110 and 120 systolic she also noted that she gets colonoscopies on a regular basis due to family history of colon cancer last one was 2 years ago she sees a Dr. Topete in [facility] and that her last labs were relatively normal except for mild variation in some kidney function. She takes very few medications the 1 she does take a something to help her sleep each night. Presently patient is stable workup and exam has not come up for definitive diagnosis of why the patient had the syncopal spell that apparently left her with no memory for an undetermined amount of time. Plan to continue antibiotics at this point in time for possible diverticulitis and to have physical therapy see in the morning to see if for self-care functioning has returned to her baseline Subjective Subjective Pt lives alone in a single-story home and is usually IND with mobility. Pt owns a RW if needed. Pt still drives. New diagnosis of No cancer in past 12 months? [facility] How much help from another person do you currently need... Turning from your None back to your side while in a flat bed without using bedrails? Moving from lying on None back to sitting on the side of a flat bed without using bedrails? Moving to and from a None bed to a chair ( including a wheelchair)? Standing up from a None chair using your arms? (e.g., wheelchair, bedside chair) Walking in hospital None room? Climbing 3-5 steps A little with a railing? Mobility Score 23 Mobility Level [facility] Mobility 7 Walk 25 feet or more Mobility Calculator Rehab PT IP Eval Objective Appearance Patient Behavior Appropriate,Cooperative Patient Orientation Person Difficulty following none instructions Speech Pattern Clear Ambulation Patient Able to Yes Ambulate Ambulation Observation IP General Gait No Deviations/Normal Pattern Observation Ambulation Distance 250 (feet) Ambulation Assistive Rolling Walker Device Ambulation Ability Supervision/Stand by Balance Ability to Arise Able, uses arms to help Sitting Balance Steady, safe Standing Balance Steady, wide stance Dynamic Sitting Good Balance Ability Dynamic Standing Good Balance Ability Transfers Bed Transfer Ability Minimal x 1 (25% assist) Sit to Stand Bed Supervision/Stand by Transfer Ability Sit to Stand Chair Supervision/Stand by Transfer Ability Rehab PT IP prob,goals,plan Problems Date of Evaluation: 03/21/25 Rehab Potential Rehab Potential Innapropriate for Skilled Therapy Discharge Plan PT Discharge Plan Pt most appropriate to d/c home when deemed medically necessary. PT recommending pt use RW for all ambulation upon d/c home. Pt not appropriate for skilled acute care PT d/t mobility being IND-SBA. Eval Complexity Eval Charge Codes 44306 - Moderate Complexity PHYSICIAN CERTIFICATION: I certify the specified therapy services for Isabel Ybarra are required, authorized, and reviewed every 30 days.
[2025-03-21 12:00] VITALS: BP 124/49; PULSE 59; PULSE 60; RESP 20; TEMP 36.7; O2SAT 98
[2025-03-21] MEDS: LACTATED RINGERS 1000ML 500 ML 250 ML IV (13:54)
--- NOTE | 2025-03-21 14:19 | PC.NURSE ---
IV in left AC started leaking. new IV placed in Right AC, intact, patent, pink. family at bedside, call light within reach.
[2025-03-21 16:00] VITALS: BP 116/71; PULSE 60; PULSE 63; RESP 18; TEMP 36.9; O2SAT 100
--- NOTE | 2025-03-21 16:43 | EXP.DC.SUM ---
General Admission date:: 03/20/25 Discharge date: 03/21/25 HPI HPI HPI: This patient who yesterday began to have some chills, did a home COVID test that was positive. (Note further workup in the ER showed no active virus or COVID PCR was negative). Patient notes she gets COVID shots and flu shots. According to relatives patient was talking but the patient has no regular extension of anything and actually at some time ended up on the floor were not sure for how many hours. Due to this slightly elevated CPKs and came to the emergency room where workup was done only significant finding was diverticulosis and 1 area of diverticulitis without rupture.. But noting exam of the abdomen extremely benign unsure if CT findings are correct. Patient also noted with creatinine at at 1043 and increased WBCs blood pressure slightly elevated where she notes normally at home its between 110 and 120 systolic she also noted that she gets colonoscopies on a regular basis due to family history of colon cancer last one was 2 years ago she sees a Dr. Topete in [facility] and that her last labs were relatively normal except for mild variation in some kidney function. She takes very few medications the 1 she does take a something to help her sleep each night. Presently patient is stable workup and exam has not come up for definitive diagnosis of why the patient had the syncopal spell that apparently left her with no memory for an undetermined amount of time. Plan to continue antibiotics at this point in time for possible diverticulitis and to have physical therapy see in the morning to see if for self-care functioning has returned to her baseline Hospital Course Hospital Course Hospital Course: Amada is a 69-year-old female who was found down at home. Presented with an episode of loss time where she was unsure how long she was down or why she fell. On presentation found to have rhabdomyolysis with elevated CK. White count elevated at 14. Medicine was consulted for admission by the ER. Admitted for IV fluids and monitoring along with empiric antibiotics. Cultures obtained. No overt signs of infection. Antibiotics not continued. Responded well to fluids. Still having pain consistent with rhabdomyolysis. CK improved however from a little over thousand to 600. Kidney function remained stable. Potassium normal. Magnesium elevated after replacement. Tolerating p.o. intake. Therapy evaluated, independently mobile using a walker. Blood pressure improved. No longer having any orthostatic hypotension. Discussed case at length with patient and her sister at bedside. Suspect she became dehydrated and had an orthostatic event leading to her being out on the floor and developing rhabdomyolysis. Given the improvement in her labs and improvement in mobility, stable to discharge home with close follow-up with her primary care. Discontinued blood pressure medications at this time as she is currently normotensive. Recommend holding her diuretics as I believe she was prerenal and dehydrated. Resume blood pressure medications gradually if blood pressure elevates above 140. Also counseled on setting boundaries with family demands and taking time to care for herself and focus on her own needs. Patient stable on room air. Kidney function normal with BUN 18, creatinine 1.3. White count normalized to 9. Does not appear to have significant injury from rhabdomyolysis. Explained that muscle pain will improve over the coming week. Follow-up with PCP within the next week. Of note, reported a positive COVID test at home. Comprehensive panel on arrival was negative for all analytes Total time spent on discharge 38 minutes in counseling, documentation, chart review, and direct care with patient. Exam Data for Last 24 hours Vital signs and Labs for Last 24 Hours: Temp Pulse Resp BP Pulse Ox O2 Del Method 98.5 F 63 18 116/71 100 Room Air 03/21/25 16:00 03/21/25 16:00 03/21/25 16:00 03/21/25 16:00 03/21/25 16:00 03/21/25 16:00 Laboratory Results - last 24 hr 03/20/25 15:10: VBG pH 7.50 H, VBG pCO2 27.0 L, VBG pO2 184.3 H, VBG HCO3 20.3 L, VBG Total CO2 21.2 L, VBG O2 Saturation 99.7 H, VBG Base Excess -2.9 L, VBG Lactic Acid 1.9 03/20/25 16:20: ESR 63 H, Sodium 134 L, Potassium 3.0 L, Chloride 99, Carbon Dioxide 27, Anion Gap 11.0, BUN 21 H, Creatinine 1.00, Estimated Creat Clear 67, Estimated GFR 55 L, Est GFR ( Amer) 66, Glucose 105 H, Calcium 9.0, Total Bilirubin 0.9, AST 52 H, ALT 23, Alkaline Phosphatase 72, Total Creatine Kinase 1043 H*, Troponin I < 0.01, C-Reactive Protein 141.0 H, NT-Pro-B Natriuret Pep 507 H, Total Protein 7.5, Albumin 4.1, Globulin 3.4 H, Albumin/Globulin Ratio 1.2, Procalcitonin 0.305, TSH 2.41, Free T4 Index 4.2 L, Thyroxine (T4) 10.5, T3 Uptake 40 03/20/25 17:31: Urine Color Yellow, Urine Appearance Clear, Urine pH 6.0, Ur Specific [place] 1.010, Urine Protein Negative, Urine Glucose (UA) Negative, Urine Ketones 1+, Urine Blood Trace-i, Urine Nitrate Negative, Urine Bilirubin Negative, Urine Urobilinogen 0.2, Ur Leukocyte Esterase Negative, Urine RBC Occasional, Urine WBC None, Ur Squamous Epith Cells 3-5, Urine Bacteria Trace, Urine Opiates Screen Negative, Urine Methadone Screen Negative, Ur Barbituates Screen Negative, Ur Phencyclidine Scrn Negative, Ur Amphetamines Screen Negative, U Benzodiazepines Scrn Negative, Urine Cocaine Screen Negative, U Marijuana (THC) Screen Negative 03/20/25 21:22: Troponin I < 0.01 03/21/25 06:21: WBC 9.1 D, RBC 3.44 L, Hgb 11.3 L, Hct 32.8 L, MCV 95.3, MCH 32.8 H, MCHC 34.5, RDW 14.3, Plt Count 250, MPV 10.1, Neut % (Auto) 79.1, Lymph % (Auto) 11.7, [place] % (Auto) 8.6, Eos % (Auto) 0.1, Baso % (Auto) 0.2, Neut # (Auto) 7.2, Lymph # (Auto) 1.1, [place] # (Auto) 0.8, Eos # (Auto) 0.0, Baso # (Auto) 0.0, Sodium 133 L, Potassium 3.3 L, Chloride 100, Carbon Dioxide 27, Anion Gap 9.3, BUN 18 H, Creatinine 1.30 H D, Estimated Creat Clear 52, Estimated GFR 40 L, Est GFR ( Amer) 49 L D, Glucose 106 H, Calcium 9.0, Phosphorus 3.6 D, Magnesium 4.1 H D, Total Bilirubin 0.5, AST 47 H, ALT 21, Alkaline Phosphatase 70, Total Creatine Kinase 651 H* D, Total Protein 6.5, Albumin 3.4 L D, Globulin 3.1, Albumin/Globulin Ratio 1.1 03/21/25 07:08: VBG pH 7.43 H, VBG pCO2 34.1 L, VBG pO2 53.6 H, VBG HCO3 22.0 L, VBG Total CO2 23.0, VBG O2 Saturation 88.2 H, VBG Base Excess -2.4, VBG Lactic Acid 1.2 I & O for Last 24 hours: Intake & Output 03/18/25 03/19/25 03/20/25 03/21/25 23:59 23:59 23:59 23:59 Intake Total 1330 / 1330 Output Total 1200 / 1200 Balance 130 / 130 Weight 81.647 kg 81.42 kg Constitutional Constitutional: no acute distress, obese, chronically ill appearing and cooperative *Routine HEENT Exam Head: Present normocephalic Eye: Present EOMI and PERRL ENT: Present mucous membranes moist *Routine Neck Exam Neck: Present supple; Absent lymphadenopathy *Routine Respiratory Exam Respiratory: Present CTA bilaterally; Absent rhonchi, wheezes or crackles *Routine Cardiovascular Exam Cardiovascular: Present RRR *Routine Abdominal Exam Abdominal: Present soft and normoactive bowel sounds; Absent tenderness *Routine Rectal Exam Patient deferred: visual exam *Routine Exam Patient deferred: external exam *Routine Extremities Exam Extremities: Absent cyanosis, clubbing or edema Comments: Thighs tender to palpation *Routine Skin Exam Skin: Present intact and warm; Absent rash *Routine Neurological Exam Neurological: Present alert, oriented X3 and moving all extremities; Absent altered mental status Results Data Completed and Pending Labs on day of discharge: Labs from last 24 hours 03/21/25 03/21/25 03/20/25 07:08 06:21 21:22 WBC 9.1 D RBC 3.44 L Hgb 11.3 L Hct 32.8 L MCV 95.3 MCH 32.8 H MCHC 34.5 RDW 14.3 Plt Count 250 MPV 10.1 Neut % (Auto) 79.1 Lymph % (Auto) 11.7 [place] % (Auto) 8.6 Eos % (Auto) 0.1 Baso % (Auto) 0.2 Neut # (Auto) 7.2 Lymph # (Auto) 1.1 [place] # (Auto) 0.8 Eos # (Auto) 0.0 Baso # (Auto) 0.0 ESR VBG pH 7.43 H VBG pCO2 34.1 L VBG pO2 53.6 H VBG HCO3 22.0 L VBG Total CO2 23.0 VBG O2 Saturation 88.2 H VBG Base Excess -2.4 VBG Lactic Acid 1.2 Sodium 133 L Potassium 3.3 L Chloride 100 Carbon Dioxide 27 Anion Gap 9.3 BUN 18 H Creatinine 1.30 H D Estimated Creat Clear 52 Estimated GFR 40 L Est GFR ( Amer) 49 L D Glucose 106 H Calcium 9.0 Phosphorus 3.6 D Magnesium 4.1 H D Total Bilirubin 0.5 AST 47 H ALT 21 Alkaline Phosphatase 70 Total Creatine Kinase 651 H* D Troponin I < 0.01 C-Reactive Protein NT-Pro-B Natriuret Pep Total Protein 6.5 Albumin 3.4 L D Globulin 3.1 Albumin/Globulin Ratio 1.1 Procalcitonin TSH Free T4 Index Thyroxine (T4) T3 Uptake Urine Color Urine Appearance Urine pH Ur Specific [place] Urine Protein Urine Glucose (UA) Urine Ketones Urine Blood Urine Nitrate Urine Bilirubin Urine Urobilinogen Ur Leukocyte Esterase Urine RBC Urine WBC Ur Squamous Epith Cells Urine Bacteria Urine Opiates Screen Urine Methadone Screen Ur Barbituates Screen Ur Phencyclidine Scrn Ur Amphetamines Screen U Benzodiazepines Scrn Urine Cocaine Screen U Marijuana (THC) Screen 03/20/25 03/20/25 03/20/25 17:31 16:20 15:10 WBC RBC Hgb Hct MCV MCH MCHC RDW Plt Count MPV Neut % (Auto) Lymph % (Auto) [place] % (Auto) Eos % (Auto) Baso % (Auto) Neut # (Auto) Lymph # (Auto) [place] # (Auto) Eos # (Auto) Baso # (Auto) ESR 63 H VBG pH 7.50 H VBG pCO2 27.0 L VBG pO2 184.3 H VBG HCO3 20.3 L VBG Total CO2 21.2 L VBG O2 Saturation 99.7 H VBG Base Excess -2.9 L VBG Lactic Acid 1.9 Sodium 134 L Potassium 3.0 L Chloride 99 Carbon Dioxide 27 Anion Gap 11.0 BUN 21 H Creatinine 1.00 Estimated Creat Clear 67 Estimated GFR 55 L Est GFR ( Amer) 66 Glucose 105 H Calcium 9.0 Phosphorus Magnesium Total Bilirubin 0.9 AST 52 H ALT 23 Alkaline Phosphatase 72 Total Creatine Kinase 1043 H* Troponin I < 0.01 C-Reactive Protein 141.0 H NT-Pro-B Natriuret Pep 507 H Total Protein 7.5 Albumin 4.1 Globulin 3.4 H Albumin/Globulin Ratio 1.2 Procalcitonin 0.305 TSH 2.41 Free T4 Index 4.2 L Thyroxine (T4) 10.5 T3 Uptake 40 Urine Color Yellow Urine Appearance Clear Urine pH 6.0 Ur Specific [place] 1.010 Urine Protein Negative Urine Glucose (UA) Negative Urine Ketones 1+ Urine Blood Trace-i Urine Nitrate Negative Urine Bilirubin Negative Urine Urobilinogen 0.2 Ur Leukocyte Esterase Negative Urine RBC Occasional Urine WBC None Ur Squamous Epith Cells 3-5 Urine Bacteria Trace Urine Opiates Screen Negative Urine Methadone Screen Negative Ur Barbituates Screen Negative Ur Phencyclidine Scrn Negative Ur Amphetamines Screen Negative U Benzodiazepines Scrn Negative Urine Cocaine Screen Negative U Marijuana (THC) Screen Negative DS: Diagnosis Discharge Diagnosis (1) Episode of syncope: Status: Acute Code(s): R55 - Syncope and collapse Qualifiers: Syncope type: unspecified Qualified Code(s): R55 - Syncope and collapse (2) Toxic metabolic encephalopathy: Status: Acute Code(s): G92.8 - Other toxic encephalopathy (3) Hypomagnesemia: Status: Acute Code(s): E83.42 - Hypomagnesemia (4) Hypokalemia: Status: Acute Code(s): E87.6 - Hypokalemia (5) Elevated creatine kinase: Status: Acute Code(s): R74.8 - Abnormal levels of other serum enzymes (6) Acute diverticulitis: Status: Ruled-out Code(s): K57.92 - Diverticulitis of intestine, part unspecified, without perforation or abscess without bleeding (7) Rhabdomyolysis: Status: Acute Code(s): M62.82 - Rhabdomyolysis Meds Home Medications and Allergies Home Medications ?Medication ?Instructions ?Recorded ?Confirmed ?Type ezetimibe 10 mg tablet 10 mg PO DAILY 03/20/25 03/20/25 History levothyroxine 50 mcg tablet 50 mcg PO DAILY 03/20/25 03/20/25 History meclizine 25 mg tablet 25 mg PO TIDP PRN Dizziness 03/20/25 03/21/25 History melatonin 10 mg tablet 10 mg PO HS 03/20/25 03/20/25 History metoprolol succinate 50 mg 50 mg PO DAILY 03/20/25 03/20/25 History tablet,extended release 24 hr Held on 03/21/25. Instructions: Hold pending improvement in blood pressure. Resume second if systolic blood pressure greater than 140 trazodone 50 mg tablet 50 mg PO HS 03/20/25 03/20/25 History valsartan 160 mg tablet 160 mg PO DAILY 03/20/25 03/20/25 History Held on 03/21/25. Instructions: Hold pending improvement in blood pressure, resume first if blood pressure greater than 140 New Prescriptions to Start Prescriptions: Allergies Allergy/AdvReac Type Severity Reaction Status Date / Time Sulfa (Sulfonamide Allergy Hives Verified 03/20/25 15:28 Antibiotics) Discharge Plan Disposition Patient Disposition: Home Health Service Condition: Good Discharge Order Discharge Orders: Discharge Order (Routine); Ordered 03/21/25 Ordered By: Jann Hull Follow up Plan Follow up with: Provider,Referral, MD [Primary Care Provider, Medical] - Enter time for follow up Referral Note: Please call primary care for follow up appointment Prescriptions/Medication Reconciliation: Continued trazodone 50 mg tablet 50 mg PO HS meclizine 25 mg tablet 25 mg PO TIDP PRN (Reason: Dizziness) Patient Comments: TAKE 1 TABLET 3 TIMES EACH DAY NEEDED FOR DIZZINESS levothyroxine 50 mcg tablet 50 mcg PO DAILY ezetimibe 10 mg tablet 10 mg PO DAILY melatonin 10 mg Tablet 10 mg PO HS Held metoprolol succinate 50 mg tablet extended release 24 hr 50 mg PO DAILY Hold Instructions: Hold pending improvement in blood pressure. Resume second if systolic blood pressure greater than 140 valsartan 160 mg tablet 160 mg PO DAILY Hold Instructions: Hold pending improvement in blood pressure, resume first if blood pressure greater than 140 Discontinued hydrochlorothiazide 50 mg tablet 50 mg PO DAILY diphenhydramine HCl [Benadryl] 25 mg Capsule 25 mg PO HSP PRN (Reason: Sleep) Problem Reconciliation Problems Reviewed?: Yes Patient Discharge Instructions ACTIVITY: Continue current activity DIET: continue same diet Patient Instructions: Creatine Kinase, Magnesium, Encephalopathy, Hypokalemia Print Language: Turkish Providers Primary Care Provider: Provider,Referral Admit Provider: Jann Hull Attending Provider: Jann Hull
--- NOTE | 2025-03-23 10:50 | SW/DCPLANNER ---
Spoke with patient on the phone. Patient stated that she is doing very well. Patient stated that she is aware of her upcoming appointment and went to her family yesterday. Patient stated that the care she got while in the hospital was top notch care and that she couldnt ask for better care. Patient stated that she was able to get her new medicine picked up. Patient stated that she has no concerns or questions at this time. Ozzie Kumar
== END 2025-03-21 18:09 | disposition home health service (06) ==
LOC: ER 18:31 → 2ND 18:36
PROVIDERS: Nurse Practitioner Family; Physician Assistant; Admitting Provider Internal Medicine Adolescent Medicine; Emergency Provider Student in an Organized Health Care Education/Training Program; Visit Provider Internal Medicine Adolescent Medicine
DX: M62.82 Rhabdomyolysis (principal); E83.42 Hypomagnesemia; E87.6 Hypokalemia; I10 Essential (primary) hypertension; K57.32 Diverticulitis of large intestine without perforation or abscess without bleeding; G92.8 Other toxic encephalopathy; E66.9 Obesity, unspecified; R55 Syncope and collapse; R74.8 Abnormal levels of other serum enzymes; R79.89 Other specified abnormal findings of blood chemistry; Z79.899 Other long term (current) drug therapy; Z79.890 Hormone replacement therapy; Z88.2 Allergy status to sulfonamides; Z91.81 History of falling; Z80.0 Family history of malignant neoplasm of digestive organs; Z68.30 Body mass index [BMI] 30.0-30.9, adult; K57.92 Diverticulitis of intestine, part unspecified, without perforation or abscess without bleeding
CPT/HCPCS: 96361; 96374; 96376; 0223U; 36415; 70450; 70496; 70498; 71275; 72125; 72128; 72131; 74174; 80053; 80307; 81001; 82550; 82803; 83735; 83880; 84100; 84145; 84436; 84443; 84479; 84484; 85025; 85610; 85651; 86140; 87040; 87633; 97162; G0378; J1650; J2543; J3475; J7030; J7120; Q9967

== ENCOUNTER 2025-04-05 10:11 | Outpatient (CLI) | payer MEDICARE, SELFPAY ==
[2025-04-05 10:35] LABS: Basophils # 0.1 K/mm3 (0-0.2); Basophils % 0.5 % (0.1-2.0); Eosinophils # 0.1 Kmm3 (0.0-0.4); Eosinophils % 0.5 % (0.1-12.0); Hemoglobin 12.7 g/dL (12.2-16.2); Immature Granulocytes # 0.04 10^3uL; Immature Granulocytes % 0.3 %; Lymphocytes # 1.3 K/mm3 (0.7-4.5); Lymphocytes % 9.7 % (10-50); Mean Corpuscular HGB Conc 33.4 g/dL (31.8-35.4); Mean Corpuscular Hemoglobin 32.5 pg (27.0-31.2); Mean Corpuscular Volume 97.2 fl (81-99); Mean Platelet Volume 10.3 fl (7.4-10.4); Monocytes # 0.9 K/mm3 (0.1-1.0); Monocytes % 7.1 % (1.7-9.3); Neutrophils # 10.6 K/mm3 (1.8-7.8); Neutrophils % 81.9 % (37.0-80.0); Nucleated Red Blood Cells # 0 10^3/uL; Nucleated Red Blood Cells % 0 %; Platelet Count 370 K/mm3 (142-424); Red Blood Count 3.91 M/mm3 (4.20-5.40); Red Cell Distribution Width-SD 50.2 fL
[2025-04-05 11:18] LABS: Chloride 100 mmol/L (98-107); Potassium 4.4 mmoL/L (3.5-5.1); Sodium 135 mmol/L (136-145)
[2025-04-05 11:21] LABS: Anion Gap 8.4 mEq/L (5-15); Blood Urea Nitrogen 20 mg/dl (7-17); Calcium 9.6 mg/dl (8.4-10.2); Carbon Dioxide 31 mmol/L (22.0-30.0); Creatine Kinase 38 U/L (30-135); Estimated Glomerular Filt Rate 55 ml/min (>60); GFR (African American) 66 ML/MIN (>60); Glucose 114 mg/dl (74-100)
== END 2025-04-05 23:59 | disposition home or self-care (01) ==
LOC: LAB 10:12
PROVIDERS: PCP Family Medicine; Visit Provider Internal Medicine
DX: E87.6 Hypokalemia (principal); E83.42 Hypomagnesemia; R42 Dizziness and giddiness; R74.8 Abnormal levels of other serum enzymes
CPT/HCPCS: 36415; 80048; 82550; 85025

== ENCOUNTER 2025-09-28 16:49 | Emergency (ER) | payer MEDICARE, SELFPAY ==
[2025-09-28 17:10] VITALS: BP 189/92; PULSE 67; RESP 20; TEMP 36.8; O2SAT 100; BMI 26.9
--- NOTE | 2025-09-28 17:15 | XR_ITS ---
PROCEDURE INFORMATION: Exam: XR Right Shoulder Exam date and time: 09/28/2025 5:09 PM Age: 70 years old Clinical indication: Pain; Shoulder; Right; Additional info: Possible injury TECHNIQUE: Imaging protocol: Radiologic exam of the right shoulder. Views: 2 or more views. COMPARISON: CT ANGIO CHEST 03/20/2025 5:13 PM FINDINGS: Bones/joints: There is a small focus of cortical contour buckling involving the inferior scapula which is age-indeterminate. Correlate clinically. Can not exclude age indeterminate fracture. Mild degenerative changes involve the right AC and glenohumeral joints. Soft tissues: No significant soft tissue edema. No subcutaneous emphysema or radiopaque foreign bodies. IMPRESSION: 1. Small focus of cortical contour buckling involving the inferior scapula is age-indeterminate. Correlate clinically. Can not exclude age indeterminate fracture. 2. Otherwise, no acute posttraumatic osseous injury.
--- NOTE | 2025-09-28 17:15 | XR_ITS ---
PROCEDURE INFORMATION: Exam: XR Right Hand Exam date and time: 09/28/2025 5:12 PM Age: 70 years old Clinical indication: Pain; Hand; Right; Additional info: Possible injury TECHNIQUE: Imaging protocol: Radiologic exam of the right hand. Views: 3 or more views. COMPARISON: No relevant prior studies available. FINDINGS: Bones/joints: There is no evidence of acute fracture or dislocation. Joint spaces appear preserved. There is a small well circumscribed density posterior to the 2nd DIP joint which may reflect capsular calcifications or sequela of remote injury. Soft tissues: No significant soft tissue edema. No subcutaneous emphysema or radiopaque foreign bodies. IMPRESSION: No acute posttraumatic osseous injury.
--- NOTE | 2025-09-28 17:16 | PC.NURSE ---
left forearm skin tear dressed with vaseline gauze, 4x4 and kerlix
--- OUTSIDE RECORDS SUMMARY | 2025-09-28 17:24 | XMS_ITS | Clinical Summary ---
[facility] Address [address] [place] [address] Care Team Providers Care Pull Up Hand Name Role Phone Sachin Topete MD Primary Care Provider [phone] Medications sodium-potassiu m-magnesium sulfates (SUPREP BOWEL PREP KIT) 17.5-3.13-1.6 GM/180ML solution oral solutionIndicat ions:Screening for colon cancer Take 1 bottle by mouth Take As Directed. Follow instructions that were mailed to your home. If you didn't receive these call [phone]. 2 bottle 8 Active Social History Tobacco Use Types Packs/Day Years Used Date Smoking Tobacco: Never Assessed Abuse Screen Answer Date Recorded Unsafe at Home or Work/School Not on file Feels Threatened by Someone? Not on file 06/2023 Does Anyone Keep You from Co ntacting Others or Doint Things Outside the Home? Not on file 07/29/2023 Physical Sign of Abuse Present Not on file 1 Housing Stability Answer Date Recorded Current Living Arrangements Not on file 06/2023 Potentially Unsafe Housing Conditions Not on rafa e 07/29/2023 Family and Community Support Answer Srini e Recorded Help with Day-to-Day Activities Not on file 07/29/2023 Lonely or Isolated Not on file 07/29/2023 Employment Answer Date Recorded Do you want help finding or keeping work or a josé antonio b? Not on file 07/29/2023 Disabilities Answer Date Recorded Concentrating, Remembering, or Making Decisions Difficulty Not on file 07/29/2023 Doing Errands Independently Difficulty Not on fi le 07/29/2023 Education Answer Date Recorded Help with school or training? Not on file Preferred Language Not on file 07/29/2023 Comments Unknown Sex and Gender Information Value Date Recorded Sex Assigned at Not on file Legal Sex Female 1:29 PM EDT Gender Identity Not on file Sexual Orientation Not on file Plan of Treatment Health Maintenance Due Date Last Done Comments DXA SCAN 1954 TDAP/TD VACCINES (1 - Tdap) 1973 MAMMOGRAM 1994 COLOGUARD 1999 COLON CANCER SCREENING [address] COLONOGRAPHY 1999 FECAL OCCULT BLOOD TEST 1999 FIT Testing (1 year) 1999 Pneumococcal Vaccine 50+ (1 of 1 - PCV) 2004 ZOSTER VACCINE (1 of 2) 2004 ANNUAL PHYSICAL 06/30/2018 HEPATITIS C SCREENING 06/30/2018 INFLUENZA VACCINE 05/21/2025 COVID-19 Vaccine ( - season) 2025 COLONOSCOPY 07/14/2028 07/14/2018 COLORECTAL CANCER SCREENING 07/14/2028 Procedures Procedure Name Priority Date/Time Associated Diagnosis Comments SCANNED - COLONOSCOPY 07/14/2018 from Last 3 Months or Most Recently Relevant to Health Maintenance Results * SCANNED - COLONOSCOPY (07/14/2018) Sachin Topete MD CHART REVIEW TABS Final Re sult from Last 3 Months or Most Recently Relevant to Health Maintenance Insurance NANCY HUMMEL [id number] [facility] Care Teams Pull Up Hand Relationship Specialty Start Date End Date Sachin Topete MD [address] [place], [place] [id number] NANCY HERNANDES [id number] PCP - General Family Medicine 06/11/18
--- NOTE | 2025-09-28 19:05 | HMH.EDGENADL ---
Discharge Plan Disposition Patient Disposition: Home, Self-Care Condition: Good Prescriptions Prescriptions: No Action trazodone 50 mg tablet 50 mg PO HS metoprolol succinate 50 mg tablet extended release 24 hr 50 mg PO DAILY meclizine 25 mg tablet 25 mg PO TIDP PRN (Reason: Dizziness) Patient Comments: TAKE 1 TABLET 3 TIMES EACH DAY NEEDED FOR DIZZINESS levothyroxine 50 mcg tablet 50 mcg PO DAILY valsartan 160 mg tablet 160 mg PO DAILY ezetimibe 10 mg tablet 10 mg PO DAILY Referrals Follow up/Referrals: Hector Rhodes DO [Staff Physician, Orthopedics] - See instructions Sachin Topete [Primary Care Provider, Medical] - See instructions Activity Restrictions/Add. Instructions Additional Instructions/Restrictions: Call Dr. Rhodes's office tomorrow to schedule an appointment. Wear the sling for comfort. Use tylenol and ibuprofen as needed for pain. Cool compresses as needed. Clinical Impressions Clinical Impression: Fracture of scapula Print Language Print Language: Chadian Discharge ED Provider: Ivy Toth Adult HPI General Chief complaint: Fall Stated complaint: AO 12-9 hurt right shoulder Time Seen by Provider: 09/28/25 19:05 Mode of Arrival: Ambulatory Source of Information: Patient Description of Symptoms (Recalled from ER Triage Doc. by RN): patient fell at [place] bringing in her trash can. she lst her footing on the curb, falling and hitting her right shoudler, right hand, left front of head, and has a left forearm skin tear. patient not on thinners. no other pain. History of Present Illness HPI narrative: Patient is a 70-year-old female who is not on any blood thinners who presents to the emergency department after a fall. Patient states that she was walking outside when she lost her footing. Patient states that she landed onto her right shoulder. Patient is complaining of pain in her right shoulder. Patient states that she does not think she hit her head but the neighbor called and said that she did. Patient is denying any headache vision changes numbness weakness chest pain abdominal pain. Patient states that it was a mechanical fall in nature. Patient did not have any chest pain shortness of breath or other associated symptoms prior to the fall. Related Data Home Medications ?Medication ?Instructions ?Recorded ?Confirmed ezetimibe 10 mg tablet 10 mg PO DAILY 03/20/25 05/03/25 levothyroxine 50 mcg tablet 50 mcg PO DAILY 03/20/25 05/03/25 meclizine 25 mg tablet 25 mg PO TIDP PRN Dizziness 03/20/25 05/03/25 metoprolol succinate 50 mg 50 mg PO DAILY 03/20/25 05/03/25 tablet,extended release 24 hr Held on 03/21/25. Instructions: Hold pending improvement in blood pressure. Resume second if systolic blood pressure greater than 140 trazodone 50 mg tablet 50 mg PO HS 03/20/25 05/03/25 valsartan 160 mg tablet 160 mg PO DAILY 03/20/25 05/03/25 Allergies Allergy/AdvReac Type Severity Reaction Status Date / Time Sulfa (Sulfonamide Allergy Hives Verified 05/03/25 14:48 Antibiotics) [facility] Disclaimer: The information contained in this section may have been updated after the patient was seen, as this information can be updated by other users. Family History Father Cancer Mother Cancer Social History Smoking Status: Never smoker alcohol intake: never current occupational status: retired Travel in the last 8 weeks?: None Have you lived/traveled outside [place] in past 30 days?: No Contact w/someone who lives/traveled outside [place] past 30 days?: No Exposure to someone with infectious disease in past 14 days?: No Do you have a fever (greater than 100.4 F or 38 C)?: No Have you tested positive for COVID-19?: No Exposed to someone with COVID-19 in past 14 days?: No Do you have a sore throat?: No Do you have a cough?: No Do you have any weakness?: No Do you have any diarrhea?: No Are you experiencing any unusual bleeding?: No Do you have any muscle aches/pain?: No Do you have any abdominal pain?: No Are you experiencing loss of taste or smell?: No Other Medical History Have you received the Flu Vaccine for this season: No Have you received the Pneumonia Vaccine: Yes ROS Obtained: Yes All systems reviewed & no additional complaints except as documented and Yes Systems reviewed as appropriate & no additional complaints except as documented Physical Exam General General appearance: alert and in no apparent distress Head Head exam: normocephalic, normal inspection and other (some bruising to the left forehead) Eye Eye exam: Present normal appearance, PERRL and EOMI; Absent scleral icterus ENT ENT exam: Present normal exam and normal external ear exam Neck Neck exam: Present normal inspection, full ROM and other (no cervical spine tenderness); Absent tenderness Chest Chest inspection: Present normal inspection and symmetric chest wall rise Respiratory Respiratory exam: Present normal lung sounds bilaterally; Absent respiratory distress or wheezes Cardiovascular Cardiovascular exam: Present regular rate, normal rhythm, normal heart sounds and other (No chest wall tenderness) Abdominal Exam Abdominal exam: Present soft and distention; Absent tenderness, guarding or rebound Extremities Exam Extremities exam: Present normal inspection, full ROM and other (Right UE: tenderness along the shoulder and scapula, decreased ROM 2/2 pain) Back Exam Back exam: Present normal inspection and full ROM Neurological Exam Neurological exam: Present alert, oriented X3, CN II-XII intact and normal gait; Absent motor sensory deficit Psychiatric Psychiatric exam: Present normal affect and normal mood Skin Skin exam: Present warm and dry Medical Decision Making Medical Records Medical records reviewed: Yes I reviewed the patient's medical records. Screening: Per USPSTF and CDC recommendations, given the prevalence of disease in our region, it is our hospital?s policy to screen for HIV and viral Hepatitis for all patients aged 18 and over and those with ongoing risk factors. Abraham Inquiry Pt receiving controlled substance: No Vital Signs: 09/28/25 17:10 09/28/25 19:14 09/28/25 19:17 Temperature 98.2 F Temperature Source Oral Pulse Rate 67 Pulse Rate [Right Radial] 67 Respiratory Rate 20 18 Blood Pressure 187/90 H Blood Pressure [Right Arm] 189/92 H Blood Pressure Mean [Right Arm] 124 Blood Pressure Source [Right Arm] Automatic Cuff Blood Pressure Position [Right Arm] Sitting 02 Sat by Pulse Oximetry 100 97 97 Oxygen Delivery Method Room Air Room Air Room Air 09/28/25 20:38 Temperature 97.9 F Temperature Source Pulse Rate 64 Pulse Rate [Right Radial] Respiratory Rate 18 Blood Pressure 167/88 H Blood Pressure [Right Arm] Blood Pressure Mean [Right Arm] Blood Pressure Source [Right Arm] Blood Pressure Position [Right Arm] 02 Sat by Pulse Oximetry Oxygen Delivery Method Room Air Lab Data Lab results reviewed: Yes I reviewed the patient's lab results. Orders (Tests/Meds): ORDERS Category Date Time Status CT head/brain wo con Stat Cat Scan 09/28/25 19:22 Completed Hand XR right minimum 3 views [XR hand RT min 3V] Stat Exams 09/28/25 17:15 Completed Scapula XR right [XR scapula RT] Stat Exams 09/28/25 19:44 Completed XR shoulder RT min 2V Stat Exams 09/28/25 17:15 Completed Medical Decision Narrative: Patient is a 70-year-old female who presented to the emergency department after mechanical fall. On arrival, patient was hemodynamically stable with unremarkable vital signs. Differential includes but not limited to: Intracranial process, fracture, dislocation, sprain, strain, amongst others. X-ray of the right shoulder, hand were obtained and CT head was obtained. Hand x-ray was reviewed and interpreted by myself and showed no acute pathology. Left shoulder x-ray showed some buckling of the inferior scapula. On repeat exam, patient did have some inferior scapular tenderness therefore dedicated scapular x-ray was obtained which showed inferior scapula fracture with apex angulation. CT head showed no intracranial process at this time. I discussed the scapula fracture with Dr. Rhodes the orthopedic doctor who recommended a sling. Patient had no other tenderness to the suggest any other acute trauma. Patient was otherwise discharged home in stable condition, return precautions were discussed. Critical Care Critical Care Time Critical Care Time: No
[2025-09-28 19:14] VITALS: BP 187/90; PULSE 67; RESP 18; O2SAT 97
[2025-09-28 19:17] VITALS: O2SAT 97
--- NOTE | 2025-09-28 19:22 | CT_ITS ---
PROCEDURE INFORMATION: Exam: CT Head Without Contrast Exam date and time: 09/28/2025 7:33 PM Age: 70 years old Clinical indication: Injury or trauma; Fall; Other: Pain; Additional info: Fall, head trauma TECHNIQUE: Imaging protocol: Computed tomography of the head without contrast. Radiation optimization: All CT scans at this facility use at least one of these dose optimization techniques: automated exposure control; mA and/or kV adjustment per patient size (includes targeted exams where dose is matched to clinical indication); or iterative reconstruction. COMPARISON: CT ANGIO HEAD 03/20/2025 5:09 PM FINDINGS: Brain: Mild stable diffuse cerebral atrophy is consistent with this patient's age. The visualized basilar cisterns are patent. The cortical/white matter interfaces are preserved throughout the brain. There is no evidence of mass, mass effect or midline shift. There is no evidence of acute hemorrhage within the brain parenchyma or the subarachnoid space. The craniocervical junction is within range of normal. There are mild stable areas of diminished density in the periventricular and subcortical white matter bilaterally which are nonspecific, however likely represent chronic small vessel ischemic change. If symptoms persist, correlation with MRI is advised. Cerebral ventricles: The ventricular system demonstrates minor stable diffuse compensatory enlargement. Paranasal sinuses: The visualized portions of the sinuses are normal. Mastoid air cells: The mastoid sinuses are normal. Orbital cavities: The orbits are normal. Bones: There is no evidence of acute fracture. Soft tissues: No soft tissue swelling is identified. IMPRESSION: No acute intracranial abnormality. Stable head CT.
--- NOTE | 2025-09-28 19:44 | XR_ITS ---
PROCEDURE INFORMATION: Exam: XR Right Scapula Exam date and time: 09/28/2025 7:47 PM Age: 70 years old Clinical indication: Pain; Shoulder; Right; Additional info: Possible fracture, pain after falling TECHNIQUE: Imaging protocol: Radiologic exam of the right scapula. Complete exam. COMPARISON: CR Shoulder R 09/28/2025 5:09 PM FINDINGS: Bones/joints: There is an acute fracture involving the scapula with mild lateral apex angulation. Otherwise, there is no evidence of acute fracture or dislocation. Joint spaces appear preserved. There is a minor convex left upper thoracic scoliosis. Mild degenerative changes involve the acromioclavicular joint. Soft tissues: No significant soft tissue edema. No subcutaneous emphysema or radiopaque foreign bodies. IMPRESSION: 1. Acute fracture involving the inferior scapula with mild lateral apex angulation. 2. Otherwise, no acute posttraumatic osseous injury.
--- NOTE | 2025-09-28 19:47 | PC.NURSE ---
Winston de santiago didget cleaned with hibiclens and sterile gauze
[2025-09-28 20:38] VITALS: BP 167/88; PULSE 64; RESP 18; TEMP 36.6; O2SAT 100
== END 2025-09-28 20:41 | disposition home or self-care (01) ==
PROVIDERS: Emergency Provider Student in an Organized Health Care Education/Training Program; PCP Family Medicine
DX: S42.101A Fracture of unspecified part of scapula, right shoulder, initial encounter for closed fracture (principal); W18.39XA Other fall on same level, initial encounter
CPT/HCPCS: 70450; 73010; 73030; 73130; 99284